=== PATIENT | male | born 1965 | race Caucasian/White ===

== ENCOUNTER 2024-08-25 18:45 | Emergency (ER) | payer BC, SELFPAY ==
[2024-08-25] VITALS (7 sets, daily range): BP systolic 127–157; BP diastolic 76–91; BMI 24.9
[2024-08-25 19:53] LABS: % Basophils 0.7 % (0-2); % Eosinophils 8.5 % (0-6); % Immature Granulocytes 0.2 % (0-0.5); % Lymphocytes 17.6 % (20.5-51.1); % Monocytes 9.7 % (1.7-9.3); % Neutrophils 63.3 % (42.2-75.2); Absolute Basophils 0.1 10^3/uL (0-0.2); Absolute Eosinophils 0.8 10^3/uL (0-0.7); Absolute Lymphocytes 1.6 10^3/uL (1.2-3.4); Absolute Monocytes 0.9 10^3/uL (0.1-0.6); Absolute Neutrophils 5.6 10^3/uL (1.4-6.5); Hematocrit 44.8 % (39.0-52.0); Hemoglobin 15.3 g/dL (13.0-18.0); Mean Corp Hgb Conc. 34.2 g/dL (33.0-37.0); Mean Corpuscular Hgb 28.8 pg (27.0-31.0); Mean Corpuscular Volume 84.2 fL (80.0-94.0); Nucleated Red Blood Cells % 0 % (-); Platelet Count 290 10^3/uL (130-400); Red Blood Cell Count 5.32 10^6/uL (4.70-6.10); Red Cell Dist. Width 12.8 % (11.5-14.5); White Blood Cell Count 8.9 10^3/uL (4.8-10.8)
[2024-08-25 20:07] LABS: ALT (SGPT) 26 U/L (0-50); AST (SGOT) 24 U/L (17-59); Albumin 4.7 g/dl (3.5-5.0); Alkaline Phosphatase 42 U/L (38-126); Blood Urea Nitrogen 24 mg/dl (9-20); Calcium 9.7 mg/dl (8.4-10.2); Carbon Dioxide 30 mmol/L (22-30); Chloride 102 mmol/L (98-107); Estimated Creatinine Clearance 103 ml/min; Glucose 111 mg/dl (70-99); Potassium 3.9 mmol/L (3.5-5.1); Sodium 141 mmol/L (135-145); Total Bilirubin 0.8 mg/dl (0.2-1.3); Total Protein 7.2 g/dl (6.3-8.2); eGFR > 60.00
[2024-08-25 20:19] LABS: Troponin I < 0.012 ng/ml
--- NOTE | 2024-08-25 21:09 | ED.GENMED ---
History of Present Illness
General
Chief Complaint: Chest Pain
Source: patient and spouse
Exam Limitations: none
Time Seen by Provider: 08/25/24 20:48
History of Present Illness
History of Present Illness:
59yoM with a history of hypertension presenting with his for evaluation of chest pain. Patient reports intermittent chest pain for the past 3 days. He describes a pressure in his sternum that comes and goes randomly. He denies any pleuritic
or exertional symptoms. He is otherwise asymptomatic and denies any associated diaphoresis, dizziness, shortness of breath, nausea, paresthesias. No current chest pain during initial exam. No tobacco use. His grandmother in her 40s from a
heart attack.
Past History
Past History
ED Past Medical History: None
ED Past Surgical History: None
Phy Exam
General Physical Exam
General Presentation: well appearing and no apparent distress
General age: appears stated age
General Skin: warm and dry
General Habitus: normal
General Mental: alert
ENT Exam
ENT Exam: normocephalic
Cardiovascular Exam
Cardiovascular Exam: regular rate/rhythm, no edema and no murmur
Pulmonary Exam
Pulmonary Exam: lungs clear, no respiratory distress, no rales, no crackles, no rhonchi and no wheezing
Neurological Exam
Neurological Exam: alert
Jose Coma Scale
Eye Opening: Spontaneous
Verbal Response: Oriented
Motor Response: Obeys Commands
GCS Total Score: 15
Skin Exam
Skin Exam: normal color and warm/dry
Psychiatric Exam
Psychiatric Exam: normal mood/affect
Scores
Heart Score for Chest Pain Patients
STEMI patient?: No
History: Slightly or Non-Suspicious
ECG: Normal
Age: >45 - <65 years
Risk Factors: 1 or 2 Risk Factors
Troponin: </= Normal Limit
Heart Score for Chest Pain Patients: 2
Heart Score Risk: 2.5% MACE over next 6 weeks
Course
Orders/Labs/Results
Orders:
Orders
08/25/24 18:47
EKG [Electrocardiogram (*1)] Urgent
Reason for Study: Chest Pain
EKG- Treatment ONCE
08/25/24 19:32
CXR2 [CR Chest - 2 Views ] Urgent
Comment:
Reason For Exam: chest pain
08/25/24 19:39
Complete Blood Count/With Diff Urgent
Comprehensive Metabolic Panel Urgent
Troponin I Urgent
08/25/24 21:07
Cardiac Monitoring- Treatment ONCE
EKG- Treatment ONCE
08/25/24 22:29
Troponin I Urgent
08/25/24 22:30
Electrocardiogram (*1) Urgent
Reason for Study: Chest Pain
Abnormal Lab Results
08/25/24
19:39
Absolute Monos (auto) 0.9 H 10^3/uL
(0.1-0.6)
Absolute Eos (auto) 0.8 H 10^3/uL
(0-0.7)
Lymphocytes % 17.6 L %
(20.5-51.1)
Monocytes % 9.7 H %
(1.7-9.3)
Eosinophils % 8.5 H %
(0-6)
BUN 24 H mg/dl
(9-20)
Glucose 111 H mg/dl
(70-99)
08/25/24 19:39
08/25/24 19:39
Vital Signs
Initial and Last Documented VS:
Initial Vital Signs
Temp Pulse Resp BP Pulse Ox
98.6 F 73 18 157/91 98
08/25/24 18:50 08/25/24 18:50 08/25/24 18:50 08/25/24 18:50 08/25/24 18:50
Last Documented Vital Signs
Temp Pulse Resp BP Pulse Ox
98.6 F 70 18 131/83 94
08/25/24 18:50 08/25/24 23:15 08/25/24 20:49 08/25/24 23:00 08/25/24 23:15
MDM/Problems Addressed
Differential Diagnosis Includes:
59yoM here with intermittent CP x several days. Comes on randomly. Otherwise asymptomatic. Hx of HTN. He is mildly hypertensive with otherwise stable vital signs. Exam reassuring. Differential diagnosis includes but is not limited to: ACS, acid
reflux, musculoskeletal, nonspecific chest pain
Initial ED plan: Workup initiated by nursing staff prior to initial exam. EKG shows normal sinus rhythm without ischemic changes and troponin within normal limits. Chest x-ray appears normal. Will check delta troponin/EKG.
*Pulse Oximetry
SaO2: 97
Oxygen Mode of Delivery: Room air
Patient hypoxic: no (98%)
*EKG
Interpreted by ED Provider?: Yes
EKG Intrepretation Date: 08/25/24
Heart Rate: 72
Rate: normal
Rhythm: sinus
[place]: normal axis
Interval: normal interval
QRS Pattern: normal QRS
Ischemia: no ischemia
*Critical Care Note
Total Time (30-74mins, 75-104mins- exclusive of procedures): Not Applicable
Update Note
Update Note:
Repeat EKG and troponin performed at 3 hours unchanged. HEART score is 2. No indication for hospitalization. He was advised to follow-up with his PCP for outpatient stress test. ED return precautions reviewed. Patient discharged in stable
condition.
ED Attending Note
-
Portions of this chart may have been created with voice recognition software.� Occasional wrong word or��sound alike� substitutions may have occurred due to the inherent limitations of voice recognition software.
Discharge Plan
Departure
Patient Disposition: Home (Routine Discharge)
Date of Disposition: 08/25/24
Time of Disposition: 23:21
Patient with high blood pressure during this ER visit?: Yes
Discharge Problem:
Chest pain
Instructions: Chest Pain PCP Follow Up
Referrals:
Travis Payne DO [Family Provider]
Activity Restrictions/Additional Instructions:
Please call your family doctor tomorrow to schedule a follow-up appointment. Return to the ER with any new or worsening symptoms.
Interventions
Interventions:
*Risk Screen - Suicide Last Done: 08/25/24 18:50
*General Assessment Last Done: 08/25/24 19:26
*Neglect/Abuse Screening Last Done: 08/25/24 19:26
*ED- Fall Risk Assessment Last Done: 08/25/24 18:50
*ED COVID-19 Vaccine History Last Done: 08/25/24 18:50
*Nursing Disposition Last Done: 08/25/24 23:29
ED- Cardiac Assessment Last Done: 08/25/24 19:28
Discharge Date and Time
Discharge Date/Time: 08/25/24 23:30
Print Language: OMANI
[2024-08-25 22:59] LABS: Troponin I < 0.012 ng/ml
== END 2024-08-25 23:30 | disposition home or self-care (01) ==
LOC: EMR 18:45
PROVIDERS: Emergency Medicine; Physician Assistant; EMERGENCY PHYSICIAN Student in an Organized Health Care Education/Training Program; FAMILY PHYSICIAN Family Medicine
DX: R07.9 Chest pain, unspecified (principal); I10 Essential (primary) hypertension
CPT/HCPCS: 99285; 71046; 80053; 84484; 85025; 93005